=== PATIENT | male | born 1990 | race Caucasian/White ===

== ENCOUNTER 2020-11-24 17:13 | Emergency (ER) | payer OTHER, SELFPAY ==
[2020-11-24 17:24] VITALS: BP 141/63; PULSE 72; RESP 14; TEMP 37.1; O2SAT 98; BMI 27.3
[2020-11-24 19:15] LABS: COVID19 -Nasal RAPID Negative (Negative)
[2020-11-24 19:52] VITALS: BP 123/75; PULSE 66; O2SAT 98
== END 2020-11-24 20:00 | disposition left against medical advice (07) ==
PROVIDERS: Emergency Medicine; Emergency Provider Emergency Medicine
DX: J02.9 Acute pharyngitis, unspecified (principal); Z20.822 Contact with and (suspected) exposure to COVID-19
CPT/HCPCS: 87081; 87635; 87880; 99282; C9803